=== PATIENT | male | born 1955 | race Caucasian/White ===

== ENCOUNTER 2020-05-01 02:59 | Inpatient (IN) | payer OTHER ==
[~2020-05-01] VITALS: Ht 175.3 cm; Wt 97.5 kg
[2020-05-01 03:14] LABS: BASOPHILS ABSOLUTE AUTO 0.08 K/mm3 (0.00-0.23); BASOPHILS PERCENT AUTO 1 % (0-2); EOSINOPHILS ABSOLUTE AUTO 0.39 K/mm3 (0.00-0.68); EOSINOPHILS PERCENT AUTO 6 % (0-6); Hematocrit 48.9 % (37.0-53.0); Hemoglobin 15.8 g/dL (13.5-17.5); IMMATURE GRAN ABSOLUTE AUTO 0.03 K/mm3 (0.00-0.10); IMMATURE GRAN PERCENT AUTO 0 % (0-1); LYMPHOCYTES ABSOLUTE AUTO 2.11 K/mm3 (0.84-5.20); LYMPHOCYTES PERCENT AUTO 31 % (21-46); MONOCYTES ABSOLUTE AUTO 0.87 K/mm3 (0.16-1.47); MONOCYTES PERCENT AUTO 13 % (4-13); Mean Corpuscular HGB 28.1 pg (26.0-34.0); Mean Corpuscular HGB Conc 32.3 g/dL (31.5-36.5); Mean Corpuscular Volume 87 fL (80-100); Mean Platelet Volume 10.2 fL (9.1-12.4); NEUTROPHILS ABSOLUTE AUTO 3.23 K/mm3 (1.96-9.15); NEUTROPHILS PERCENT AUTO 48 % (41-73); Platelet Count 238 K/mm3 (150-400); RDW Coefficient Variation 12.9 % (11.7-14.2); RDW Standard Deviation 41.1 fL (35.1-46.3); Red Blood Cell Count 5.62 M/mm3 (4.30-5.90); White Blood Cell Count 6.71 K/mm3 (4.00-11.30)
[2020-05-01 03:35] LABS: Alanine Aminotransfer (ALT/SGP 31 U/L (12-78); Albumin, Blood 3.1 g/dL (3.4-5.0); Albumin/Globulin Ratio 0.8 (0.8-1.8); Alk Phos 90 U/L (50-136); Anion Gap 7 mmol/L (6-16); Aspartate Aminotrans (AST/SGOT 23 U/L (12-37); Bilirubin, Total 0.2 mg/dL (0.1-1.0); Blood Urea Nitrogen 14 mg/dL (8-24); Bun/Creatinine Ratio 14.4 (12.0-20.0); CO2, Blood 29 mmol/L (21-32); Calcium, Blood 9.2 mg/dL (8.5-10.1); Chloride, Blood 102 mmol/L (98-108); Creatinine, Blood 0.98 mg/dL (0.60-1.20); Ethanol (Alcohol), Blood, Med <3 mg/dL; Globulin, Blood 3.8 g/dL (2.2-4.0); Glomerular Filtration Rate >60 (60-); Glucose, Blood 162 mg/dL (70-99); Magnesium, Blood 1.9 mg/dL (1.6-2.4); Potassium, Blood 3.6 mmol/L (3.5-5.5); Sodium, Blood 138 mmol/L (136-145); Total Protein, Blood 6.9 g/dL (6.4-8.2); Troponin I <0.015 ng/mL (0.000-0.040)
[2020-05-01] MEDS ORDERED: Pravachol40 MG PO (05:51)
[2020-05-01] MEDS ORDERED: OXYB5 PO (05:51)
[2020-05-01] MEDS ORDERED: Aspir 8181 MG PO (05:52)
[2020-05-01] MEDS ORDERED: PREG300 PO (05:52)
[2020-05-01] MEDS ORDERED: BACL10 PO (05:52)
[2020-05-01] MEDS ORDERED: PROZAC20 M1 PO (05:52)
[2020-05-01] MEDS ORDERED: METF500 PO (05:52)
[2020-05-01] MEDS ORDERED: CHLO25B PO (05:53)
[2020-05-01] MEDS ORDERED: GLIP10 PO (05:53)
[2020-05-01] MEDS ORDERED: BASAGLAR K100 UNIT/1 SC (05:54)
[2020-05-01 06:44] LABS: CHOL/HDL RATIO 2.9; Cholesterol 105 mg/dL (50-200); HDL Cholesterol 36 mg/dL (>39); LDL/HDL RATIO 0.8; Low Density Lipoprotein Chol 30 mg/dL (0-110); Triglycerides 196 mg/dL (30-160); Very Low Density Lipoprot Chol 39 mg/dL (6-32)
--- NOTE | 2020-05-01 09:14 | NUR ---
PTS BLOOD SUGARS LOW THIS AM CBG 48 ON ARRIVAL TO FLOOR. PT DRANK 4 OZ APPLE JUICE AMD EATING BREAKFAST. CBG RECHECK 74. SPOKE WITH DR PINTO- JAY ALVARADO.
--- NOTE | 2020-05-01 10:29 | NUR ---
Echocradiogram using 9.0ml of agitated saline contrast performed.
[2020-05-01] MEDS ORDERED: ACET325 PO (10:59)
[2020-05-01] MEDS ORDERED: ALBU90OI INH (11:00)
[2020-05-01] MEDS ORDERED: CARV6.25 PO (11:01)
[2020-05-01] MEDS ORDERED: Vitamin D2000 UNIT PO (11:02)
[2020-05-01] MEDS ORDERED: Enalapril Malea20 MG PO (11:03)
[2020-05-01] MEDS ORDERED: GLUCOSE4 GM PO (11:05)
[2020-05-01] MEDS ORDERED: IBUP400 PO ×2 (11:05→11:07)
[2020-05-01] MEDS ORDERED: Naproxen250 MG PO (11:07)
[2020-05-01] MEDS ORDERED: NICORETTE4 M1 PO (11:11)
[2020-05-01] MEDS ORDERED: OMEP20ER PO (11:12)
[2020-05-01] MEDS ORDERED: Viagra100 MG PO (11:14)
--- NOTE | 2020-05-01 12:55 | NUR ---
Patient is lying in bed and alert. I am immediately struck by patient's amazing sense of humor and strength under extremely difficult circumstances. Patient explains that he is to onery to let this keep him down, that he will take each day at a time and that "God won't give me more than I can handle and so we'll handle this!" Patient talks about his good family support system and his belief in God. 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 I encourage self-care, reinforce helpful attitudes and practices and provide therapeutic listening and prayer. Patient responds well and shows signs of a deeper resolve to move forward. I will continue to remain available to patient and family.
--- NOTE | 2020-05-01 17:52 | NUR ---
SHIFT SUMMARY- PT ADMITED TO THE UNIT FROM THE ED. HE IS A/O, PLESANT AND COOPERATIVE. WENT FOR AN MRI, WORKED WITH PT, HAD AN ECHO PREFORMED. ST SAW PT AND CHANGED DIET ORDERS TO THICKEND LIQUID AND PUREE DIET. ORAL CARE WITH SUCTION. HE TOLERATED PT WELL AND WAS ABLE TO STAND. HIS SPEECH IS SLURRED. HE HAS A LEFT SIDED DROOP AND LEFT SIDED WEAKNESS.
--- NOTE | 2020-05-02 04:33 | NUR ---
FIRE PREVENTION OFFICER SUMMARY PT A&OX4, ABLE TO MAKE NEEDS KNOWN. VISITED WITH DAUGHTER EARLY IN THE SHIFT. LEFT SIDED WEAKNESS AND LEFT SIDED FACIAL DROOP NOTED. SLURRED SPEECH NOTED. PT PLEASANT AND COOPERATIVE TO CARE. TOLERATED MEDS WELL WITH APPLESAUCE. NO C/O PAIN OR ANY DISCOMFORT. ON TELE, SR 80'S. NO C/O CHEST PAIN, NO SOB. NO N&V. USES URINAL. CALL LIGHT WITHIN REACH. WILL CONT TO MONITOR PT. WILL REPORT TO ONCOMING RN.
--- NOTE | 2020-05-02 16:52 | NUR ---
PCU DIRECTOR WEIGHTS AND MEASURES - JONH- CALLED AND INFORMED THAT THE PT KIRSTEN DOWN TO THE 45'S TWICE AND WHAT LOOKS LIKE A POSSIBLE 2ND DEGREE BLOCK. WENT IN TO CHECK ON PT, PT WAS ASLEEP AND AROUSABLE. BLAIR WAS INFORMED AND HE STATED TO DC COREG AND PLACE AN ORDER FOR A STAT 12 LEAD EKG. TRIED CALLING DETECTIVE [facility] [place] AND THERE WAS NO ANSWER, RESIDENTIAL DESIGNER - ANNI- WAS INFORMED OF ORDER.
--- NOTE | 2020-05-02 18:04 | NUR ---
SHIFT SUMMARY PT A&Ox4 T/O SHIFT, COOPERATIVE AND PLEASANT. LEFT SIDED DEFICIT STILL NOTED, PT IS A 2 PERSON STAND BY ASSIST. PT NOW EATS A MECH SOFT DIET AND IS TOLERATING IT WELL. MEDS ONE AT A TIME, WHOLE IN APPLESAUCE. PCU EQUIPMENT WASHER CALLED DUE TO PT BRADYING INTO THE 40'S AND WHAT APPEARED TO LOOK LIKE A 2ND DEGREE BLOCK. EKG WAS PERFORMED AND IT SHOWED THE PT IN SR IN THE 80'S. BLAIR ORDERED COREG TO BE DC'D. PT WAS NOT RECIEVING ENALAPRIL WHICH IS HIS NORMAL HOME MED AND RECIEVED LISINOPRIL TODAY INSTEAD. ENALAPRIL NOW AVAILABLE FOR PT FROM PHARMACY AND LISINOPRIL DC'D. BP IS LOWER THAN USUAL, MAY BE RELATED TO LISINOPRIL DOSE. WILL REPORT TO ROUTE RETURNER TO CONTINUE MONITORING BP.
--- NOTE | 2020-05-03 05:59 | NUR ---
SURVEY RODMAN SUMMARY Patient slept throughout the shift waking only twice to urinate (with assist that he requested.) Telemetry has been primarily a Sinus rhythm with a very brief episode of Sinus Aaron with a 2nd degree type 11 per PCU athletic monitor. Left sided weakness and facial droop remain unchanged from beginning of shift. No complaints of discomfort noted
--- NOTE | 2020-05-03 16:30 | NUR ---
SHIFT SUMMARY PATIENT DENIES PAIN, NAUSEA, AND SHORTNESS OF BREATH. PATIENT WORKED WITH PT/OT TODAY. PATIENT UP IN CHAIR 2 ASSIST STAND PIVOT. EATING AND DRINKING WELL. DAUGHTER VISITED. PENDING SNF/REHAB DISCHARGE.
--- NOTE | 2020-05-04 13:15 | NUR ---
Patient is lying in bed and alert. Patient continues to show great resilience and have a positive outlook. Patient's speech and mobility is increased since my last visit as well as his ability to process his thoughts. Patient talks about his family in the area and his friends in [place] so that either [facility] that he [facility] to ([place] or [place]) he will have some support but he is clearly hoping to go to the [facility] to rehab. I encourage self-care, reinforce helpful attitudes and practices and provide therapeutic listening and prayer. Patient responds well and voices appreciation for noticing his hard work and inner strength. I will continue to remain available to patient and family.
--- NOTE | 2020-05-04 18:28 | NUR ---
NO ACUTE CHANGES. PT WORKED WITH PT THIS SHIFT. DIET CHANGED TO NECTAR THICK. PT ABLE TO FEED SELF. NO PAIN OR SOB REPORTED. CALL LIGHT WITHIN REACH.
--- NOTE | 2020-05-05 03:31 | NUR ---
ZIGZAGGER SUMMARY NO ACUTE CHANGES THIS SHIFT. PT AGAIN ON NECTAR LIQUID FLUIDS AND TOLERATED PO MEDICATIONS WELL. PT SLEPT COMFORTABLY FOR MOST OF THE NIGHT. PT AXO X4, PLEASANT AND COOPERATIVE.
--- NOTE | 2020-05-05 18:17 | NUR ---
NO ACUTE CHANGES. PT WORKED WITH PT THIS SHIFT. ALERT AND ORIENTED AND ABLE TO EXPRESS ANY NEEDS. CALL LIGHT WITHIN IN REACH.
--- NOTE | 2020-05-06 02:40 | NUR ---
LATE ENTRY 05/05 AT 2030: CALL TO HOSPITALISTLUANN RE: BP 181/103. NEW ORDER FOR PRN PO HYDRALAZINE. ADMINISTERED AND BP 146/75 UPON RECHECK.
--- NOTE | 2020-05-06 05:39 | NUR ---
SHIFT SUMMARY: VSS. AFEB. AAOX4. ABLE TO COMMUNICATE NEEDS. SPEECH CONT TO BE SOMEWHAT SLURRED BUT EASILY UNDERSTOOD. L HAND W MINIMAL WEAK MOVEMENT. L FOOT PUSHES AND PULLS ONLY SLIGHTLY WEAKER THAN R. PT VERBALIZES MOTIVATION TO PROGRESS. NO ACUTE CONCERNS AT THIS TIME. WILL CONT TO MONITOR.
--- NOTE | 2020-05-06 15:35 | NUR ---
SUMMARY PT IS A/O X4, PLEASANT AFFECT. DX CVA. MADHU. SPEECH MILDLY SLURRED HOWEVER PT STATES NORMAL. HE STATE MILD N/T L FINGERS. L ARM/REACTOR FUELING SUPERVISOR CONTINUES SIGNIFCANTLY WEAKER THAN R. L LEG STRENGTH/DORSIFLEX EQUAL TO RIGHT. CONTINUING POOR CONTROL/UNCOORDINATION OF L ARM & LEG. HE IS UNABLE TO AMBULATE, 2 ASSIST STAND/PIVOT TO CHAIR FOR MEALS. ST IN FOR TX THIS AM, D/C NECTAR THICK FLUIDS, STATE OK FOR THIN LIQUIDS, NO STRAW. PT PARTICIPATE w TROY, GOOD MOTIVATION. THIS AFTERNOON D/C PLANNING/THREAD LASTERDOWEL INSPECTOR [facility], STATE PT WILL NEED COVID 19 TEST PRIOR TO TRANSFER BUT MUST BE DAY OF. NOTIFIED CHIEF II DISPATCHER.
--- NOTE | 2020-05-07 04:59 | NUR ---
SHIFT SUMMARY: VSS. AFEB. AAOX4. ABLE TO COMMUNICATE NEEDS. SPEECH MILDLY SLURRED. MORE MOVEMENT IN L HAND- PT ABLE TO CLOSE HAND COMPLETELY. L AUTOGRAPHER CONT TO BE WEAKER THAN R. BLE PUSHES/PULLS WEAK AND EQUAL BILATERALLY. PERRL. NO ACUTE CHANGES OVERNIGHT, WILL CONT TO MONITOR.
--- NOTE | 2020-05-07 16:22 | NUR ---
SUMMARY PT IS A/O X4, PLEASANT/POSITIVE AFFECT HOWEVER STATE FEELING FATIGUED TODAY D/T PHYTHER EXERCISES, STATE R SHOULDER ACHE D/T EXCESSIVE USE, PRN TYLENOL & BACLOFEN GIVEN THIS AM FOR RELIEF. HIS L ARM CONTINUES VERY WEAK w MINIMAL MOVEMENT OF FINGERS, MINIMAL FLOOR WAXER. L LEG IS STRONG HOWEVER POOR CONTROL, COMMAND, UNCOORDINATION. UNABLE TO BR WT. HE DENIES N/T. HE DID PARTICIPATE w PHYTHER TODAY. HE IS ABLE TO STAND/PIVOT TO CHAIR. VSS. DR PINTO PLAN FOR HIM IS TO TRANSFER TO [facility] TOMORROW @ 1000. LOG PROCESSOR OPERATOR AWARE.
--- NOTE | 2020-05-08 05:02 | NUR ---
SHIFT SUMMARY: VSS. AFEB. AAOX4. ABLE TO COMMUNICATE NEEDS. PERRL. CONT W/ SLIGHT SLUR TO SPEECH, MAGO MODIFIED FOOD AND FLUID TEXTURE WELL. ABLE TO COMPLETELY CLOSE LEFT HAND W/ MUCH EFFORTS. GENERALLY WEAK W/L INSTRUMENT LENS GRINDER APPRENTICE MUCH WEAKER THAN R. B PUSHES AND PULLS BOTH EQUAL. DENIES N/T. PT APPEARED TO HAVE SLEPT WELL. NO ACUTE CONCERNS AT THIS TIME. WILL CONT TO MONITOR.
[2020-05-08] MEDS ORDERED: ATOR40TA PO (09:16)
[2020-05-08] MEDS ORDERED: HUMULIN R100 UNIT/2 SC (09:17)
[2020-05-08] MEDS ORDERED: Nicoderm Cq1 EAC1 TOP (09:17)
--- NOTE | 2020-05-08 10:03 | NUR ---
[facility] IV WAS REMOVED WITH NO ISSUE. ALL PERSONAL ITEMS SENT WITH THE PT. [facility] AND COILED TUBING SUPERVISOR SENT DC [facility]ACKET TO [facility]. REPORT WAS ATTEMPTED TO BE CALLED BUT THE NURSE WHO ANSWERED THE PHONE SAID SHE DID NOT KNOW ABOUT THE ADMIT AND WOULD CALL BACK LATER FOR REPORT. PT WAS STABLE UPON DC.
== END 2020-05-08 10:01 | disposition short-term general hospital (02) | DRG 66 ==
LOC: ER 02:59 → MEDS 06:15 → ENPENDDIS 05-07 18:30 → MEDS 05-08 10:01
PROVIDERS: Emergency Medicine; ADMIT Internal Medicine
DX: I63.81 Other cerebral infarction due to occlusion or stenosis of small artery (principal); R53.1 Weakness; R29.810 Facial weakness; I10 Essential (primary) hypertension; E11.9 Type 2 diabetes mellitus without complications; E78.5 Hyperlipidemia, unspecified; Z85.46 Personal history of malignant neoplasm of prostate; F17.210 Nicotine dependence, cigarettes, uncomplicated; Z79.4 Long term (current) use of insulin; Z79.82 Long term (current) use of aspirin; I65.29 Occlusion and stenosis of unspecified carotid artery
CPT/HCPCS: 70450; 70496; 70498; 70551; 80053; 80061; 82947; 83036; 83690; 83735; 83880; 84484; 85025; 92526; 92610; 93005; 93010; 93306; 94760; 97110; 97112; 97112-CQ; 97162; 97166; 97535; 99285-25; A9270; A9270-GY; G0480; J1650; J1815; Q2038; Q9967; U0003